=== PATIENT | male | born 1985 | race Caucasian/White ===

== ENCOUNTER → 2017-08-04 | Outpatient (CLI) | payer BC | LOC: RAD 17:55 | PROVIDERS: ATTEND Nurse Practitioner Family | DX: M25.511 Pain in right shoulder (principal) ==

== ENCOUNTER → 2017-08-09 | Outpatient (CLI) | payer BC ==
--- NOTE | 2017-08-09 17:34 | Diagnostic Imaging Report ---
Patient History: rt shoulder tendonitis acute pain of rt shoulder. Right shoulder pain. No known injury. Technique: Three views of the right shoulder. Comparison: None. FINDINGS: No acute fracture or dislocation is seen in the right shoulder. Alignment of the bony structures is normal. The imaged joint spaces are preserved. No soft tissue calcifications are appreciated. IMPRESSION: No acute osseous abnormality seen in the right shoulder. Dictated by: Dictated on workstation # [id number]
== END ==
LOC: RAD 16:34
PROVIDERS: ATTEND Nurse Practitioner Family
DX: M75.81 Other shoulder lesions, right shoulder (principal)
CPT/HCPCS: 73030